=== PATIENT | male | born 1950 | race Caucasian/White ===

== ENCOUNTER → 2021-09-02 09:46 | Outpatient (BNVA) | payer MEDICARE, SELFPAY | PROVIDERS: Family Provider Family Medicine; PCP Physician Assistant; Visit Provider Surgery | DX: Z12.11 Encounter for screening for malignant neoplasm of colon (principal) | CPT/HCPCS: 99024; 99202 ==

== ENCOUNTER 2021-09-12 06:11 | Day surgery (SDC) | payer MEDICARE, SELFPAY ==
[2021-09-10 12:12] VITALS: BMI 31.9
[2021-09-12 06:37] VITALS: BP 141/90; PULSE 67; RESP 18; TEMP 36.4; O2SAT 96
[2021-09-12] MEDS: sodium chloride 0.9% 1,000 ML 30 ML IV (06:41)
--- NOTE | 2021-09-12 07:03 | P.ANESASSM_ITS ---
Pre-Anesthetic Assessment Height/Weight: Height 1.73 m Weight 95.254 kg Temp Pulse Resp BP Pulse Ox 97.5 F L 67 18 141/90 96 09/12/21 06:37 09/12/21 06:37 09/12/21 06:37 09/12/21 06:37 09/12/21 06:37 Preop Diagnosis: need for colon screening Operation Date: 09/12/21 07:30 Proposed Procedures p Colonoscopy 29742,Z12.11(Not Applicable) - Cristofer Fuentes DO Familial anesthetic complications: PONV Was Beta Susi taken within 24 hours: Yes Was Clonidine taken within 24 hours: N/A Last intake: Intake Last Liquid Date 09/11/21 Last Liquid Time 17:00 Last Solid Date 09/10/21 Last Solid Time 17:00 Last Intake: 17:00 Social No alcohol and No tobacco Exam alert, oriented x 3, clear to auscultation bilaterally and regular rate & rhythm Airway Submandibular: within normal limits Cervical ROM: within normal limits Mallampati: Class II Dentition: full Pulmonary None reported CV/HEM Coronary Artery Disease (PTCA 7 yrs ago. No CP/sob since), Hypertension and Myocardial Infarction None reported Hepatic None reported GI Gastroesophageal Reflux Disease (OTC) Metabolic None reported Musc/skel None reported Neuropsych None reported Anesthetic Plan ASA status: 3 Anesthesia: MAC Medications/Allergies Home Medications Medication Instructions Recorded Confirmed Last Taken Type atorvastatin 80 mg tablet 80 mg PO DAILY 05/09/19 09/10/21 09/11/21 History clopidogrel 75 mg tablet (Plavix) 75 mg PO DAILY 05/09/19 09/10/21 09/07/21 History flaxseed oil 1,000 mg capsule 1,000 mg PO DAILY 05/09/19 09/12/21 09/08/21 History metoprolol succinate 25 mg 25 mg PO DAILY tab 05/09/19 09/12/21 09/12/21 Histo ry tablet,extended release 24 hr 25 MG nitroglycerin 0.4 mg sublingual 0.4 mg SUBLINGUAL Q5M PRN 05/09/19 09/10/21 Unknown History tablet (Nitrostat) omega-3 fatty acids 1,000 mg 1,000 mg PO DAILY 05/09/19 09/10/21 09/10/21 History capsule (Fish Oil Concentrate) amlodipine 10 mg tablet 10 mg PO DAILY 02/07/20 09/12/21 09/12/21 History 10 MG potassium chloride 20 mEq 20 meq PO DAILY 02/07/20 09/10/21 09/11/21 History tablet,extended release valsartan 160 1 tab PO BID #180 tab 03/14/21 09/10/21 09/11/21 Rx mg-hydrochlorothiazide 12.5 mg tablet aspirin 81 mg tablet,delayed 81 mg PO DAILY PRN 09/02/21 09/10/21 09/07/21 History release (Adult Low Dose Aspirin) Allergies Allergy/AdvReac Type Severity Reaction Status Date / Time No Known Allergies Allergy Unverified 09/10/21 12:06 Current Medications Generic Name Dose Route Start Last Admin Trade Name Freq PRN Reason Stop Dose Admin Sodium Chloride 1,000 mls @ 30 mls/hr 09/12/21 06:30 09/12/21 06:41 Sodium Chloride 0.9% IV 09/13/21 06:29 30 mls/hr .Q24H JERMAINE Administration PFSH Anesthesia Medical History Coronary artery disease HTN (hypertension) Family History (Updated 09/02/21 @ 10:28 by Cristofer Fuentes DO) Father Myocardial infarction Sister Rectal cancer Other CAD (coronary artery disease) Social History Smoking and tobacco status: former smoker Data Anesthesia Cardiac Studies: No Data to Display
--- NOTE | 2021-09-12 07:25 | W.PM.OPSUD ---
Surgery/Procedure H&P Update DATE OF PROCEDURE: September 12, 2021 DATE H&P PERFORMED: 09/02/21 PREOP DIAGNOSIS: need for colon screening PLANNED PROCEDURE: Operation Date: 09/12/21 07:30 Proposed Procedures p Colonoscopy 56812,Z12.11(Not Applicable) - Cristofer Fuentes DO
[2021-09-12 07:54] VITALS: BP 131/62; PULSE 60; RESP 16; TEMP 36.4; O2SAT 94
[2021-09-12 08:09] VITALS: BP 168/85; PULSE 58; RESP 18; O2SAT 95
--- NOTE | 2021-09-12 16:23 | ANE.PACU2 ---
Inpatient post-anesthesia follow up: Airway intact: Yes Vital signs: Temperature 97.5 F Pulse Rate 58 Respiratory Rate 18 Blood Pressure 168/85 Pulse Oximetry 95 Oxygen Delivery Me thod Room Air Oxygen Flow Rate Fraction of Inspir ed Oxygen Hydration adequate: Yes Nausea and vomiting: No Pain level: 1 Mental status: Baseline
== END 2021-09-12 08:29 | disposition home or self-care (01) ==
PROVIDERS: PCP Physician Assistant; Visit Provider Surgery
PROC: 0DJD8ZZ Inspection of Lower Intestinal Tract, Via Natural or Artificial Opening Endoscopic (ICD-10-PCS; CPT 45378; principal; 2021-09-12 07:30)
DX: Z12.11 Encounter for screening for malignant neoplasm of colon (principal); D12.4 Benign neoplasm of descending colon; D12.8 Benign neoplasm of rectum; I25.10 Atherosclerotic heart disease of native coronary artery without angina pectoris; I10 Essential (primary) hypertension; I25.2 Old myocardial infarction; K21.9 Gastro-esophageal reflux disease without esophagitis; Z79.82 Long term (current) use of aspirin
CPT/HCPCS: 45385; 88305; J2370; J2704; J7030

== ENCOUNTER → 2021-09-29 08:14 | Outpatient (BNVA) | payer MEDICARE, SELFPAY | PROVIDERS: PCP Physician Assistant; Visit Provider Surgery | DX: Z09 Encounter for follow-up examination after completed treatment for conditions other than malignant neoplasm (principal); D12.6 Benign neoplasm of colon, unspecified | CPT/HCPCS: 99213 ==

== ENCOUNTER → 2022-08-24 13:51 | Outpatient (BNVA) | payer MEDICARE, SELFPAY | PROVIDERS: PCP Physician Assistant; Visit Provider Internal Medicine Cardiovascular Disease | DX: I25.10 Atherosclerotic heart disease of native coronary artery without angina pectoris (principal); I10 Essential (primary) hypertension; E78.5 Hyperlipidemia, unspecified; Z82.49 Family history of ischemic heart disease and other diseases of the circulatory system; Z87.891 Personal history of nicotine dependence | CPT/HCPCS: 99204 ==

== ENCOUNTER → 2023-05-24 12:22 | Outpatient (BNVA) | payer MEDICARE, SELFPAY | PROVIDERS: PCP Physician Assistant; Visit Provider Internal Medicine | DX: I10 Essential (primary) hypertension (principal); I25.10 Atherosclerotic heart disease of native coronary artery without angina pectoris; E78.5 Hyperlipidemia, unspecified; Z87.891 Personal history of nicotine dependence | CPT/HCPCS: 99214 ==

== ENCOUNTER → 2024-04-24 15:51 | Outpatient (BNVA) | payer MEDICARE, SELFPAY | PROVIDERS: PCP Physician Assistant; Visit Provider Internal Medicine Cardiovascular Disease | DX: I25.10 Atherosclerotic heart disease of native coronary artery without angina pectoris (principal); I10 Essential (primary) hypertension; E78.5 Hyperlipidemia, unspecified; Z87.891 Personal history of nicotine dependence | CPT/HCPCS: 99214 ==

== ENCOUNTER → 2024-10-24 15:53 | Outpatient (BNVA) | payer MEDICARE, SELFPAY | PROVIDERS: PCP Physician Assistant; Visit Provider Internal Medicine Cardiovascular Disease | DX: I25.10 Atherosclerotic heart disease of native coronary artery without angina pectoris (principal); I10 Essential (primary) hypertension; E78.5 Hyperlipidemia, unspecified; G47.30 Sleep apnea, unspecified; Z87.891 Personal history of nicotine dependence | CPT/HCPCS: 99214 ==